=== PATIENT | female | born 1980 | race Caucasian/White ===

== ENCOUNTER → 2016-07-09 | Outpatient (CLI) | payer BC ==
[2016-07-09 18:11] LABS: BLOOD UREA NITROGEN 11 mg/dL (7-18)
== END | disposition home or self-care (01) ==
LOC: LAB 17:39
PROVIDERS: ATTEND Family Medicine
DX: E23.2 Diabetes insipidus (principal)
CPT/HCPCS: 36415; 80048; 83930; 83935